=== PATIENT | female | born 1945 | race Caucasian/White ===

== ENCOUNTER 2023-09-10 11:41 | Emergency (ER) | payer BC ==
[2023-09-10 11:55] VITALS: PULSE 75; RESP 20; TEMP 98.4; BMI 20.5
[2023-09-10] MEDS ORDERED: MAG HYDROX/AL HYDROX/SIMETH 30 ML UNIT-DOSE CUP ONE (13:45)
[2023-09-10] MEDS ORDERED: FAMOTIDINE 20 MG TABLET ONE (13:45)
[2023-09-10] MEDS: FAMOTIDINE 20 MG TABLET PO ONE (13:56)
[2023-09-10] MEDS: MAG HYDROX/AL HYDROX/SIMETH 30 ML UNIT-DOSE CUP PO ONE (13:57)
[2023-09-10 15:20] LABS: BASO % 0.7 % (0-2.0); EOS % 1.1 % (0-4.5); HEMOGLOBIN 13.4 GM/dL (10.7-15.3); LYMPH % 28.1 % (8-40); MCH 31.9 pg (25.7-33.7); MCHC 32.8 g/dl (32.0-36.0); MEAN CELL VOLUME 97.2 fl (80-96); MONO % 7.4 % (3.8-10.2); NEUT % 62.7 % (42.8-82.8); PLATELET COUNT 194 10^3/uL (134-434); RBC 4.21 M/mm3 (3.60-5.2); RDW 13.9 % (11.6-15.6); WHITE BLOOD COUNT 5.9 K/mm3 (4.0-10.0)
[2023-09-10 15:46] LABS: POTASSIUM 4.1 mmol/L (3.5-5.1)
[2023-09-10 15:48] LABS: CALCIUM 9.3 mg/dL (8.5-10.1)
[2023-09-10 15:49] LABS: ALBUMIN 3.8 g/dl (3.4-5.0); BLOOD UREA NITROGEN 18.1 mg/dL (7-18)
[2023-09-10 15:53] LABS: BILIRUBIN,TOTAL 0.5 mg/dL (0.2-1); TOT PROT 7.2 g/dl (6.4-8.2)
[2023-09-10 17:14] VITALS: BP 136/54
== END 2023-09-10 17:30 | disposition left against medical advice (07) ==
LOC: JER 11:41
DX: K59.00 Constipation, unspecified (principal); R10.13 Epigastric pain; R10.31 Right lower quadrant pain; K64.4 Residual hemorrhoidal skin tags
CPT/HCPCS: 36415; 80053; 82272; 83690; 85025; 99283-25